=== PATIENT | male | born 1985 | race African-American/Black ===

== ENCOUNTER 2019-10-26 02:24 | Inpatient (IN) | payer MEDICAID ==
[~2019-10-26] VITALS: Ht 190.5 cm; Wt 89.8 kg
[2019-10-26] MEDS ORDERED: MORPHINE SULFATE 10 MG/ML CPJ IM ONE ×2 (03:15→06:45)
[2019-10-26 06:17] LABS: CLARITY URINE CLEAR (CLEAR); COLOR URINE YELLOW (YELLOW); KETONES URINE NEGATIVE (NEGATIVE); LEUKOCYTE ESTERASE URINE NEGATIVE (NEGATIVE); NITRITE URINE NEGATIVE (NEGATIVE); OCCULT BLOOD URINE NEGATIVE (NEGATIVE); PH URINE 6.5 (4.5-8.0); PROTEIN URINE NEGATIVE (NEGATIVE); SPECIFIC GRAVITY URINE 1.024 (1.005-1.030)
[2019-10-26 06:18] LABS: BASOPHILS % 0.4 % (0.0-2.0); EOSINOPHILS % 2.8 % (0.0-5.0); HEMOGLOBIN. 13.6 g/dL (14.0-18.0); LYMPHOCYTES % 40.2 % (20.0-50.0); MEAN CORPUSCULAR HEMOGLOBIN 33.4 pg (28.0-32.0); MEAN CORPUSCULAR VOLUME 98.2 fL (80.0-94.0); MONOCYTES % 9.1 % (2.0-8.0); NEUTROPHILS % 47.5 % (40.0-76.0); PLATELET 231 x1000/uL (130-400); RED BLOOD CELL COUNT 4.08 mill/uL (4.7-6.1); RED CELL DISTRIBUTION WIDTH 12.8 % (11.6-14.6)
[2019-10-26 06:22] LABS: CHLORIDE 107 mEq/L (98-107)
[2019-10-26 06:27] LABS: INR 0.9; PARTIAL THROMBOPLASTIN TIME 27.5 sec (23.4-31.0); PROTHROMBIN TIME 9.7 sec (9.6-11.0)
[2019-10-26] MEDS ORDERED: MORPHINE SULFATE 4 MG/ML CPJ (NOT FOR IM USE) IV ONE (07:00)
[2019-10-26] MEDS ORDERED: BACITRACIN 15GM TUBE TOP ONE (07:21)
[2019-10-26] MEDS ORDERED: SKIN ADHESIVE 0.7 GM EA TOP ONE (07:21)
[2019-10-26] MEDS ORDERED: BUPIVACAINE/EPINEPH/PF 0.25%/0.0005 10ML ONE (07:21)
[2019-10-26] MEDS ORDERED: VANCOMYCIN HCL 1 GM/VIAL ONE (07:22)
[2019-10-26] MEDS ORDERED: ROPIVACAINE HCL 10MG/ML 20 ML VIAL EPI ONE (07:31)
[2019-10-26] MEDS ORDERED: BACITRACIN 50,000 UNITS/VIAL ONE (07:55)
[2019-10-26] MEDS ORDERED: FENTANYL CITRATE/PF 50MCG/ML 2ML VIAL ONE ×2 (07:56→09:57)
[2019-10-26] MEDS ORDERED: PROPOFOL 200MG/20ML VIAL IV ONE (07:56)
[2019-10-26] MEDS ORDERED: MIDAZOLAM HCL 2 MG/2 ML VIAL ONE (07:56)
[2019-10-26] MEDS ORDERED: GLYCOPYRROLATE 0.2 MG/ML 2ML VIAL ONE ×2 (07:56→08:29)
[2019-10-26] MEDS ORDERED: ONDANSETRON HCL 4MG/2ML INJ ONE (07:57)
[2019-10-26] MEDS ORDERED: METOCLOPRAMIDE HCL 10MG/2ML VIAL ONE (07:57)
[2019-10-26] MEDS ORDERED: SUCCINYLCHOLINE CHLORIDE 200MG/10ML IV ONE (07:57)
[2019-10-26] MEDS ORDERED: LIDOCAINE HCL/PF 1% 10 MG/ML 5ML VIAL ONE (07:57)
[2019-10-26] MEDS ORDERED: ROCURONIUM BROMIDE 10MG/ML VIAL 5ML IV ONE (08:27)
[2019-10-26] MEDS ORDERED: NEOSTIGMINE METHYLSULFATE 1MG/ML 10 ML VIAL ONE (08:28)
[2019-10-26] MEDS ORDERED: MAGNESIUM HYDROXIDE 400MG/5ML 30ML UDC PO PRN (08:30)
[2019-10-26] MEDS ORDERED: HYDROCODONE/ACETAMINOPHEN 10/325MG TABLET PO PRN ×2 (08:30)
[2019-10-26] MEDS ORDERED: ONDANSETRON HCL 4MG/2ML INJ IV PRN ×2 (08:30→11:45)
[2019-10-26] MEDS ORDERED: ACETAMINOPHEN 325MG TABLET PO NR (08:30)
[2019-10-26] MEDS ORDERED: DOCUSATE SODIUM 100MG CAPSULE PO SCH (09:00)
[2019-10-26] MEDS ORDERED: SODIUM CHLORIDE 0.9% 1,000 ML IV ONE (11:45)
[2019-10-26] MEDS ORDERED: HYDROMORPHONE HCL/PF 2MG/ML CPJ IV PRN (11:45)
[2019-10-26] MEDS ORDERED: MEPERIDINE HCL/PF 25MG/ML CPJ IV PRN ×2 (11:45)
[2019-10-26] MEDS ORDERED: MORPHINE SULFATE 2 MG/ML CPJ (NOT FOR IM USE) IV PRN (11:45)
[2019-10-26] MEDS ORDERED: ALBUTEROL (0.083%) 2.5MG/3ML NEB HHN PRN (12:00)
[2019-10-26] MEDS ORDERED: CEFAZOLIN 2,000 MG in DEXT 5% WATER 100 ML IV SCH (12:00)
[2019-10-26] MEDS ORDERED: HYDROMORPHONE PCA 10MG/50ML IV PRN (12:43)
[2019-10-26] MEDS ORDERED: ONDANSETRON INJ IV PRN (12:45)
[2019-10-26] MEDS ORDERED: DIPHENHYDRAMINE INJ IV PRN (12:45)
[2019-10-26] MEDS ORDERED: NALOXONE INJ IV PRN (12:45)
[2019-10-26 14:00] VITALS: BP 146/78
[2019-10-26 14:05] VITALS: BP 146/78
[2019-10-26 16:00] VITALS: BP 144/90
[2019-10-26] MEDS: CEFAZOLIN 2,000 MG in DEXT 5% WATER 100 ML IV SCH ×2 (18:05→23:20)
[2019-10-26] MEDS: CELECOXIB 200MG CAPSULE PO SCH (18:50)
[2019-10-26] MEDS ORDERED: OXYC-100 PO (19:05)
[2019-10-26 20:00] VITALS: BP 141/83
[2019-10-26] MEDS ORDERED: ZOLPIDEM TARTRATE 5MG TABLET PO PRN (21:00)
[2019-10-27] VITALS: BP 136/81
[2019-10-27 04:00] VITALS: BP 139/82
[2019-10-27 08:00] VITALS: BP 150/88
[2019-10-27] MEDS ORDERED: ENOXAPARIN 40MG/0.4ML SYR SUBCUT NR (09:00)
[2019-10-27] MEDS: CELECOXIB 200MG CAPSULE PO SCH (09:52)
[2019-10-27] MEDS ORDERED: HYDR-3280 PO (11:37)
[2019-10-27] MEDS ORDERED: ACET-2708 MT (11:39)
[2019-10-27] MEDS ORDERED: DOCU-138 MT (11:40)
== END 2019-10-27 14:16 | disposition home health service (06) | DRG 313 ==
LOC: ER 02:24 → 6EST 06:01 → ENRESERV 07:44 → SUPCPDRO 08:17
PROVIDERS: ADMIT Orthopaedic Surgery; ATTEND Orthopaedic Surgery
PROC: 0QSK04Z Reposition Left Fibula with Internal Fixation Device, Open Approach (ICD-10-PCS; principal; 2019-10-26)
PROC: 0QSH04Z Reposition Left Tibia with Internal Fixation Device, Open Approach (ICD-10-PCS; 2019-10-26)
DX: S82.842A Displaced bimalleolar fracture of left lower leg, initial encounter for closed fracture (principal); F12.90 Cannabis use, unspecified, uncomplicated; F17.210 Nicotine dependence, cigarettes, uncomplicated; J45.909 Unspecified asthma, uncomplicated; V00.138A Other skateboard accident, initial encounter; Y93.51 Activity, roller skating (inline) and skateboarding; Y92.89 Other specified places as the place of occurrence of the external cause; Y99.8 Other external cause status
CPT/HCPCS: 36415; 71045; 73610; 76000; 80053; 81003; 85025; 86850; 86900; 93005; 97116; 97163; 99285; C1713; J0171; J0330; J0690; J1170; J1650; J2250; J2270; J2405; J2704; J2710; J2765; J2795; J3010; J3370; J3490; J7060

== ENCOUNTER 2019-12-21 14:19 | Emergency (ER) | payer MEDICAID ==
[~2019-12-21] VITALS: Ht 190.5 cm; Wt 97.0 kg
[~2019-12-21 14:19] MED LIST: ACET-2708 MT; DOCU-138 MT; HYDR-3280 PO
[2019-12-21] MEDS ORDERED: IBUPROFEN 600MG TABLET PO ONE (18:00)
[2019-12-21 18:30] VITALS: BP 144/82
== END 2019-12-21 18:50 | disposition home or self-care (01) ==
LOC: ER 14:19
DX: Z46.89 Encounter for fitting and adjustment of other specified devices (principal); R03.0 Elevated blood-pressure reading, without diagnosis of hypertension
CPT/HCPCS: 99282